=== PATIENT | female | born 1955 | race Caucasian/White ===

== ENCOUNTER 2021-04-02 06:21 | Day surgery (SDC) | payer OTHER ==
[~2021-04-02 06:21] MED LIST: ECOTRIN81 MG PO; LIPITOR80 MG PO; TOPROL XL50 M1 PO
== END 2021-04-02 13:45 | disposition home or self-care (01) ==
LOC: CIR.AMB 06:21
PROVIDERS: ATTEND Orthopaedic Surgery Hand Surgery
DX: S52.522A Torus fracture of lower end of left radius, initial encounter for closed fracture (principal); Z20.822 Contact with and (suspected) exposure to COVID-19
CPT/HCPCS: 25609; 25118; 25280; C1776